=== PATIENT | female | born 2000 | race Caucasian/White ===

== ENCOUNTER → 2021-04-02 | Outpatient (CLI) | payer OTHER ==
--- NOTE | 2021-04-03 08:18 | US ---
EXAMINATION TYPE: US thyroid st tissue head/neck DATE OF EXAM: 04/02/2021 COMPARISON: NONE CLINICAL HISTORY: 20-year-old female R22.0 SWELLING/MASS. Family hx thyroid cancer= mom. On thyroid meds. Feels enlarged per patient. Technique: Multiple sonographic images of the thyroid gland are obtained. FINDINGS: GLAND SIZE: Right Lobe: 5.0 x 2.4 x 2.0 cm Overall Parenchyma: heterogenous Left Lobe: 4.9 x 1.9 x 1.8 cm Overall Parenchyma: heterogeneous Isthmus Thickness: 0.6 cm Markedly heterogeneous glandular parenchyma. NODULES RIGHT: # of nodules measured on right: 0 LEFT: # of nodules measured on left: 0 ISTHMUS: # of nodules measured in the isthmus: 0 Bilateral neck scanned. Left prominent lymph node seen measuring 1.7 x 0.9 x 0.7 cm and cortical thi ckening up to 4 mm. IMPRESSION: 1. Borderline thyromegaly. Markedly heterogeneous glandular parenchyma could represent diffuse thyroi ditis, goiter, or sequela of chronic hypothyroidism. 2. No discrete nodules. 3. A borderline sized 9 mm short axis lymph node along the left side of the neck also shows mildly th ickened cortex. Probably reactive/post inflammatory. Clinical follow-up recommended. Also, follow-up ultrasound in 3 months to ensure stability/resolution.
== END ==
LOC: RADUSWWP 16:52
PROVIDERS: ATTEND Family Medicine
DX: R22.0 Localized swelling, mass and lump, head (principal)
CPT/HCPCS: 76536